=== PATIENT | male | born 1965 | race Hispanic/Latino ===

== ENCOUNTER 2018-11-06 18:13 | Emergency (ER) | payer OTHER ==
[~2018-11-06 18:13] MED LIST: ISOVUE-370 76%-LOCM 1 ML ONE
[2018-11-06 19:10] LABS: Bilirubin Large (Negative); Blood, Urine Large (Negative); Clarity CLOUDY (Clear); Glucose, Urine (Dipstick) Negative (Negative); Leukocyte Moderate (Negative); Nitrite Positive (Negative); Protein, Urine (Dipstick) 300 mg/dL (Neg-Trace); pH, Urine 5.5 (5.0-9.0)
[2018-11-06 19:12] LABS: Bacteria/HPF None Seen HPF (None Seen); Hyaline Casts/LPF 0-3 HYALINE CAST LPF (0-3 Hyaline); RBC/HPF GREATER THAN 50-TNTC HPF (0-3); Squamous Epithelial None Seen HPF (0-3); WBC/HPF None Seen HPF (0-3)
[2018-11-06] MEDS ORDERED: Ondansetron PF 4 MG/2 ML Vial ONE ×2 (19:53→20:58)
[2018-11-06] MEDS ORDERED: Morphine 4 MG/ML VIAL ONE (19:53)
[2018-11-06 20:00] LABS: #Lymphocytes 1.2 thou/uL (1.20-3.40); #Monocytes 0.8 thou/uL (0.11-0.59); #Neutrophils 11.8 thou/uL (1.40-6.50); %Basophils 0.3 % (0.0-1.0); %Eosinophils 0.1 % (0.0-10.0); %Lymphocytes 8.8 % (21.0-51.0); %Neutrophils 84.8 % (42.0-75.0); Hemoglobin 14.6 g/dL (14.0-18.0); Mean Corpuscular HGB CONC 33.7 g/dL (32.0-36.0); Mean Corpuscular Hemoglobin 31.3 pg (27.0-31.0); Mean Corpuscular Volume 92.7 fL (78.0-98.0); Mean Platelet Volume 7.3 fL (7.4-10.4); Platelet Count 314 thou/uL (130-400); RBC Distribution Width 11.5 % (11.5-14.5); Red Blood Cell (RBC) Count 4.66 mill/uL (4.70-6.10); White Blood Cell (WBC) Count 13.9 thou/uL (4.8-10.8)
[2018-11-06 20:07] LABS: PTT 29.2 SEC (22.9-36.1); Prothrombin Time 13.4 SEC (12.0-14.7)
[2018-11-06 20:20] LABS: ALT (SGPT) 25 U/L (8-55); AST (SGOT) 21 U/L (5-34); Albumin 4.7 g/dL (3.5-5.0); Alkaline Phosphatase 69 U/L (40-150); Anion Gap 14 mmol/L (10-20); BUN (Urea Nitrogen) 10 mg/dL (8.4-25.7); Bilirubin, Total 0.9 mg/dL (0.2-1.2); Calc. Creatinine Clearance 0 mL/min (70-130); Calcium 9.9 mg/dL (7.8-10.44); Carbon Dioxide 24 mmol/L (22-29); Chloride 100 mmol/L (98-107); Estimated GFR-MDRD 78; Globulin 2.6 g/dL (2.4-3.5); Glucose 99 mg/dL (70-105); Potassium 4.2 mmol/L (3.5-5.1); Protein, Total 7.3 g/dL (6.0-8.3); Sodium 134 mmol/L (136-145)
--- NOTE | 2018-11-06 21:15 | CT ---
CONTRAST ENHANCED CT IMAGES ABDOMEN AND PELVIS 11/06/18 Comparison made to previous exam from 12/09/14. Contrast enhanced CT images of the abdomen and pelvis demonstrate the lung bases to be unremarkable. No evidence of free intraperitoneal air seen. The liver and spleen are unremarkable. The gallbladder has been surgically removed. The pancreas is u nremarkable. Adrenal glands and kidneys are unremarkable. No evidence of periaortic lymphadenopathy seen. A normal appendix is visualized. Numerous descending colonic diverticula are present compatible with diverticulosis without evidence of diverticulitis. The urinary bladder is thickened and enhancing concerning for cystitis. IMPRESSION: 1. Colonic diverticulosis. 2. Abnormal thickening of the bladder concerning for cystitis. POS: [facility]
== END 2018-11-06 22:26 | disposition home or self-care (01) ==
LOC: ERS 18:13
DX: N30.91 Cystitis, unspecified with hematuria (principal); E78.5 Hyperlipidemia, unspecified
CPT/HCPCS: 36415; 74177; 80053; 81003; 81015; 84153; 85025; 85610; 85730; 87077; 87086; 87186; 96374; 96375; 96376; J2270; J2405; Q9966

== ENCOUNTER 2019-04-19 10:29 | Outpatient (CLI) | payer OTHER ==
[~2019-04-19 10:29] MED LIST changes: -ISOVUE-370 76%-LOCM 1 ML ONE; +Iopamidol 300 61% 100 ML VIAL FS ONE
--- NOTE | 2019-04-19 12:08 | CT ---
EXAM: CT abdomen and pelvis with IV contrast PROVIDED CLINICAL HISTORY: Abdominal pain COMPARISON: 11/06/2018 FINDINGS: The visualized lung bases are free of significant opacity. The solid abdominal organs demonstrate an unremarkable CT appearance. There is no bowel dilatation, inflammatory fat stranding, free fluid or free air apparent. There is n o evidence for appendicitis. Changes of prior cholecystectomy. Sigmoid colonic diverticulosis without CT evidence for diverticulitis. Persistent urinary bladder wall thickening diffusely. No regional lymph node enlargement apparent. The regional major vascular structures appear unremarkab le. The osseous structures demonstrate no concerning lytic or blastic lesions. IMPRESSION: Diffuse bladder wall thickening. Correlate for cystitis.
== END 2019-04-19 10:30 | disposition home or self-care (01) ==
LOC: SCSCT 10:29
PROVIDERS: ATTEND Family Medicine
DX: R10.30 Lower abdominal pain, unspecified (principal); N32.89 Other specified disorders of bladder
CPT/HCPCS: 74177; Q9967

== ENCOUNTER 2019-09-10 06:11 | Outpatient (CLI) | payer OTHER ==
[2019-09-10 12:28] LABS: Bacteria/HPF None Seen HPF (None Seen); Hemoglobin 14.1 g/dL (14.0-18.0); Mean Corpuscular Hemoglobin 30.5 pg (27.0-31.0); Mean Corpuscular Volume 92.5 fL (78.0-98.0); Mean Platelet Volume 8.1 fL (7.4-10.4); Platelet Count 283 thou/uL (130-400); RBC Distribution Width 11.8 % (11.5-14.5); RBC/HPF 0-3 HPF (0-3); Red Blood Cell (RBC) Count 4.63 mill/uL (4.70-6.10); Squamous Epithelial None Seen HPF (0-3); WBC/HPF 0-3 HPF (0-3); White Blood Cell (WBC) Count 5.1 thou/uL (4.8-10.8)
[2019-09-10 12:50] LABS: INR-International Normal Ratio 0.9; Prothrombin Time 12.5 SEC (12.0-14.7)
[2019-09-10 12:52] LABS: Anion Gap 9 mmol/L (10-20); BUN (Urea Nitrogen) 12 mg/dL (8.4-25.7); Calc. Creatinine Clearance 0 mL/min (70-130); Calcium 9.4 mg/dL (7.8-10.44); Carbon Dioxide 29 mmol/L (22-29); Chloride 103 mmol/L (98-107); Estimated GFR-MDRD 90; Glucose 89 mg/dL (70-105); Potassium 3.7 mmol/L (3.5-5.1); Sodium 137 mmol/L (136-145)
[2019-09-10 12:59] LABS: PTT 28.1 SEC (22.9-36.1)
[2019-09-10 13:33] LABS: Bacteria/HPF None Seen HPF (None Seen); Bilirubin Negative (Negative); Blood, Urine Negative (Negative); Clarity Clear (Clear); Glucose, Urine (Dipstick) Normal (Negative); Leukocyte Negative Leu/uL (Negative); Nitrite Negative (Negative); Protein, Urine (Dipstick) Negative (Neg-Trace); RBC/HPF 0-3 HPF (0-3); Squamous Epithelial None Seen HPF (0-3); Urobilinogen Normal mg/dL (Less than 2); WBC/HPF 0-3 HPF (0-3)
== END 2019-09-10 06:12 | disposition home or self-care (01) ==
LOC: LABBT 06:11
PROVIDERS: ATTEND Urology
DX: Z01.818 Encounter for other preprocedural examination (principal); N39.0 Urinary tract infection, site not specified; Z87.440 Personal history of urinary (tract) infections; Z87.438 Personal history of other diseases of male genital organs; N40.1 Benign prostatic hyperplasia with lower urinary tract symptoms; N32.89 Other specified disorders of bladder; N35.812 Other bulbous urethral stricture, male; Z12.5 Encounter for screening for malignant neoplasm of prostate
CPT/HCPCS: 80048; 81015; 85027; 85610; 85730; 87086; 93005; 93010

== ENCOUNTER 2019-09-18 05:47 | Day surgery (SDC) | payer OTHER ==
[2019-09-10 10:30] VITALS: BMI 29.2
[2019-09-18] MEDS ORDERED: Levofloxacin 500 mg/D5W 100 ml Premix Bag ONE (06:14)
[2019-09-18] MEDS ORDERED: Fentanyl 100 MCG/2 ML VIAL ONE (06:49)
[2019-09-18] MEDS ORDERED: Propofol 500 MG/50 ML VIAL ONE (07:29)
[2019-09-18] MEDS ORDERED: Phenazopyridine HCl 97.5 MG TABLET ONE (08:44)
[2019-09-18] MEDS ORDERED: Oxybutynin 5 MG TAB ONE (08:44)
--- NOTE | 2019-09-18 11:54 | OP ---
DATE OF PROCEDURE: 09/18/2019 PREOPERATIVE DIAGNOSES: 1. A 54-year-old male with history of BPH. 2. Urethral stricture. POSTOPERATIVE DIAGNOSES: 1. A 54-year-old male with history of BPH. 2. Urethral stricture. PROCEDURES PERFORMED: Cystoscopy, UroLift implant x5, direct vision internal urethrotomy of bulbar, proximal penile urethral stricture, 18-Austrian [place] tip Gabriel catheter placement. ANESTHESIA: TIVA. COMPLICATIONS: None apparent. DISPOSITION: To recovery room in stable condition. INDICATIONS FOR THE PROCEDURE AND HISTORY: Mr. Chinchilla is a pleasant 54-year- old male with history of BPH, history of recurrent UTI, prostatitis. He did undergo workup with cysto, volume study. He was found to have bilobar hyperplasia of the prostate, which has been managed with Flomax for numerous years, and staging cystoscopy demonstrated bilobar hyperplasia and bulbar stricture. He desired to proceed with concomitant DVIU, UroLift implant. He has been fully informed regarding recurrent nature of urethral stricture disease, risks and complications of UroLift including a urethral stone, chronic pain, injury to adjacent organs, status post secondary procedure. All questions answered to his satisfaction and desired to proceed. Moreover, he desires to discontinue his Flomax, therefore presents for concomitant BPH surgery. DESCRIPTION OF PROCEDURE: After an informed consent was signed, the patient was taken to the operating room, placed in a dorsal lithotomy position with the genital area prepped and draped in the usual surgical sterile fashion. A 21-Austrian cystoscope was utilized for cystoscopy. Again, demonstrating at the proximal penile urethra and bulbar. There was a urethral stricture, caliber about 14-Austrian. I was able to bypass the stricture with a 21-Austrian cystoscope atraumatically. We staged the prostatic urethra again demonstrating bilobar hyperplasia with somewhat of a high median bar. Bladder was entered demonstrating UOs away from the bladder neck about 3 mm. There was trabeculated bladder consistent with chronic outlet obstruction. No tumors, no stones were seen. At this time, I transitioned to a UroLift implant scope for restaging. UroLift implant first one placed on the left side. Care was taken to stay approximately centimeter and a half away from the bladder neck. We performed the UroLift implant bilaterally. We placed total two on the right lobe, three on the left lobe, elevating the anterior bladder, anterior prostatic urethral tissue creating a nice open channel. At the end of the procedure, he had a nice open bladder neck, with resolution of lateral obstructing lobes. Implants were not seen in the level of the bladder neck or the bladder mucosa. At this time, I re-staged his urethral stricture. Despite passing a 21-Austrian cystoscope back and forth, he had persistent annular narrowing. Therefore, direct vision internal urethrotomy was performed with a cold knife at 12 o'clock position, opening up his annular stricture. An 18-Austrian [place] tip Gabriel catheter was able to be passed without guidewire assist. 10 mL insufflated and attached to leg bag. He tolerated the procedure well and transported to the recovery room in stable condition. He will return to clinic Monday for catheter removal, and will see me subsequently on October 24. He will continue his BPH medications until his followup with me in October for reassessment of his voiding symptoms. He is discharged with ciprofloxacin for course of 7 days, Colace, Azo , tramadol p.r.n. Job ID: [id number] [facility]
[2019-09-18] MEDS ORDERED: PROPOFOL 200 MG/20 ML VIAL ONE (12:08)
== END 2019-09-18 10:55 | disposition home or self-care (01) ==
LOC: SDC 05:47
PROVIDERS: ATTEND Urology
PROC: 0TND8ZZ Release Urethra, Via Natural or Artificial Opening Endoscopic (ICD-10-PCS; principal; 2019-09-18)
PROC: 0T7D8DZ Dilation of Urethra with Intraluminal Device, Via Natural or Artificial Opening Endoscopic (ICD-10-PCS; principal; 2019-09-18)
DX: N40.1 Benign prostatic hyperplasia with lower urinary tract symptoms (principal); N13.8 Other obstructive and reflux uropathy; N35.812 Other bulbous urethral stricture, male; N32.89 Other specified disorders of bladder; Z87.440 Personal history of urinary (tract) infections; Z79.899 Other long term (current) drug therapy
CPT/HCPCS: J0131; J1956; J2704; J3010